=== PATIENT | male | born 1945 | race Caucasian/White ===

== ENCOUNTER 2017-04-10 06:10 | Day surgery (SDC) | payer MEDICARE, OTHER ==
[~2017-04-10 06:10] MED LIST: ACETAMINOPHEN 1,000 MG/100 ML BTL IV ONE
--- NOTE | 2017-04-10 13:10 | Operative Note ---
DATE OF SURGERY: 04/10/2017 Surgeon: Akbar Domingo DO PREOPERATIVE DIAGNOSES: 1. Torn medial and lateral meniscus of the right knee. 2. Chondromalacia of the right knee. POSTOPERATIVE DIAGNOSES: 1. Torn medial and lateral meniscus, right knee. 2. Chondromalacia of the patella, medial femoral condyle, lateral femoral condyle, and trochlea right knee. 3. Synovitis 2 compartments, right knee. OPERATION: 1. Arthroscopic partial medial and lateral meniscectomy, right knee. 2. Arthroscopic partial synovectomy 2 compartments, right knee. 3. Arthroscopic chondroplasty of the lateral femoral condyle and trochlea, right knee. DESCRIPTION OF PROCEDURE: This 72-year-old male was taken to the operating room and placed in the supine position on the operating room table. A general anesthetic was administered and the right lower extremity was elevated. It was exsanguinated and the tourniquet inflated to 300 mmHg. Arthroscopic knee adamson applied. The right knee was prepped with Hibiclens and draped in the usual sterile fashion. An inferior lateral portal was established for the 4 mm arthroscope and initial evaluation of the joint demonstrated grade 3 chondromalacia of the patella but no unstable articular cartilage was present there. Some unstable fragments of articular cartilage were, however, present in the trochlea and chondroplasty was performed. There was also synovitis there as well as in the lateral compartment, and partial synovectomy was performed. The medial compartment was probed and a complex tear extending from the posterior attachment around to about the 3-o'clock position was present with the apex being at approximately the 1:30 to 2-o'clock position. Utilizing the basket forceps, we resected back to the apex of the tear which was within about 2 mm of the meniscal synovial junction and then tapered in each direction to restore stability to the remaining meniscus. There was an area of grade 2 chondromalacia on the lateral aspect of the medial femoral condyle but no instability of the articular cartilage was present and it was not further disturbed. The intracondylar notch was examined and found to be normal. The lateral compartment was entered and grade 2 chondromalacia of the lateral femoral condyle was also present. Chondroplasty was performed to remove loose fragments of articular cartilage. The patient demonstrated radial tears of the lateral meniscus as well, and these were resected with the basket forceps and rotating shaver and smoothed and contoured to a stable edge. The joint was then copiously irrigated and suctioned. The instruments were removed. The puncture sites infiltrated with 0.25% Marcaine with epinephrine. Sterile dressings applied. Tourniquet and knee adamson released, and the patient taken to the recovery room in satisfactory condition. GROSS PATHOLOGY: The patient demonstrated tears of both the medial and lateral meniscus as described above. Grade 2 chondromalacia noted on all compartments except the patella which was grade 3. In addition, synovitis present mostly in the infrapatellar area as well as the lateral compartment. MTDD
[2017-04-10] MEDS ORDERED: BUPIVACAINE 0.25% W/EPI MPF 30ML VIAL IVP ONE (13:35)
[2017-04-10] MEDS ORDERED: FAMOTIDINE 20MG TABLET PO ONE (13:40)
[2017-04-10] MEDS ORDERED: METOCLOPRAMIDE 10 MG TABLET PO ONE (13:40)
[2017-04-10] MEDS ORDERED: MECLIZINE 25 MG TABLET PO ONE (13:40)
[2017-04-10] MEDS ORDERED: LIDOCAINE 2% MDV (20MG/ML) 20ML VIAL IV ONE (15:32)
[2017-04-10] MEDS ORDERED: PROPOFOL 10 MG/ML VIAL IV ONE (15:32)
[2017-04-10] MEDS ORDERED: KETOROLAC 30 MG/ML VIAL IVP ONE (15:32)
[2017-04-10] MEDS ORDERED: HYDROMORPHONE HCL 2 MG/ML VIAL IV ONE (15:32)
[2017-04-10] MEDS ORDERED: SEVOFLURANE 250 ML INH ONE (15:32)
[2017-04-10] MEDS ORDERED: MIDAZOLAM HCL 2MG/2ML VIAL IV ONE (15:32)
[2017-04-10] MEDS ORDERED: ONDANSETRON HCL IV 4 MG/2 ML VIAL IVP ONE (15:32)
== END 2017-04-10 09:10 | disposition home or self-care (01) ==
LOC: SUR 06:10
PROVIDERS: ATTEND Orthopaedic Surgery
DX: S83.281A Other tear of lateral meniscus, current injury, right knee, initial encounter (principal); S83.241A Other tear of medial meniscus, current injury, right knee, initial encounter; I25.810 Atherosclerosis of coronary artery bypass graft(s) without angina pectoris; I48.2 Chronic atrial fibrillation; E11.9 Type 2 diabetes mellitus without complications; Z79.01 Long term (current) use of anticoagulants; E78.00 Pure hypercholesterolemia, unspecified
CPT/HCPCS: 36416; 82948; 29880; 29876; 01400; J1885; J2405; J1170

== ENCOUNTER 2017-04-22 22:03 | Emergency (ER) | payer MEDICARE, OTHER ==
--- NOTE | 2017-04-22 22:15 | Emergency Department Record ---
History of Present Illness - General Chief Complaint: Arrythmia/Palpitations Stated Complaint: BP HIGH,HEAVINESS ON THE CHEST,RAPID HEART RATE Time Seen by Provider: 04/22/17 22:10 Source: Patient Mode of Arrival: Ambulatory Limitations: No limitations - History of Present Illness Initial Comments: 72 yo male presents to ED for evaluation of chest "heaviness" and intermittent "fluttering" in the chest. Patient reports a history of atrial fibrillation, but has not had an occurrence since 2009. Patient denies fevers, chills, cough , or recent illness. Patient reports history of CAD s/p CABG with stents x 5 as well. MD Complaint: Irregular heart beat Onset/Timin -: Days(s) Context: Occurred during rest Associated Symptoms: Chest pain - Related Data Home Medications Medication Instructions Recorded Confirmed Last Taken Atorvastatin Calcium 80 mg PO QHS 04/22/17 04/22/17 Unknown Carvedilol [Carvedilol] 6.25 mg PO DAILY 04/22/17 04/22/17 Unknown Clopidogrel Bisulfate [Clopidogrel] 75 mg PO DAILY 04/22/17 04/22/17 Unknown Ferrous Sulfate [Iron] 325 mg PO DAILY 04/22/17 04/22/17 Unknown Fish Oil/Dha/Epa [Fish Oil 1,200 1 each PO DAILY 04/22/17 04/22/17 Unknown mg Fish Oil] Insulin Aspart [Novolog Flexpen] 10 unit SQ TID 04/22/17 04/22/17 Unknown Insulin Glargine,Hum.rec.anlog 16 unit SQ DAILY 04/22/17 04/22/17 Unknown [Lantus Solostar] Lisinopril [Lisinopril] 10 mg PO DAILY 04/22/17 04/22/17 Unknown Metformin HCl [Metformin HCl] 1,000 mg PO BID 04/22/17 04/22/17 Unknown Multivitamin [Multi-Vitamin Daily] 1 each PO DAILY 04/22/17 04/22/17 Unknown Nitroglycerin [Nitrostat] 0.4 mg SL Q5MIN PRN 04/22/17 04/22/17 Unknown Ranitidine HCl [Zantac] 150 mg PO BID 04/22/17 04/22/17 Unknown Allergies Allergy/AdvReac Type Severity Reaction Status Date / Time dabigatran etexilate AdvReac internal Verified 04/22/17 22:07 [From [facility]] bleeding Review of Systems Constitutional: Denies: Chills, Fever, Malaise, Night sweats Eyes: Denies: Eye discharge, Eye pain ENT: Denies: Congestion, Ear pain, Epistaxis Respiratory: Denies: Cough, Dyspnea Cardiovascular: Reports: Chest pain, Palpitations. Denies: Dyspnea on exertion Endocrine: Denies: Fatigue, Heat or cold intolerance Gastrointestinal: Denies: Abdominal pain, Nausea, Vomiting Musculoskeletal: Denies: Arthralgia, Back pain Skin: Denies: Bruising, Change in color Neurological: Denies: Abnormal gait, Confusion, Headache, Seizure Psychiatric: Denies: Anxiety Hematological/Lymphatic: Denies: Anemia, Blood Clots Past Medical History - SOCIAL HISTORY Smoking Status: Former smoker Alcohol Use Comment: 1 drink every few days - RESPIRATORY Hx Respiratory Disorders: No - CARDIOVASCULAR Hx Cardio Disorders: Yes Hx Cardiac Cath: Yes Hx Chest Pain: Yes (>1 year) Hx Heart Attack: Yes (2003) Hx Hypertension: Yes Hx Irregular Heartbeat: Yes (A-fib r/t prodaxa) Hx Coronary Artery Bypass Graft: Yes (QUAD BYPASS) Hx Coronary Stent: Yes (5 stents total- last in 09/2011) Comment:: high cholesterol - NEURO Hx Neuro Disorders: No - GI Hx GI Disorders: Yes Hx Reflux: Yes Hx Wt Loss/Wt Gain: Yes (LOST A FEW POUNDS) - Hx Genitourinary Disorders: No - ENDOCRINE Hx Endocrine Disorders: Yes Hx Diabetes: Yes Comment:: CHECKS 4-5X/DAY HGB A1C 7.4 - MUSCULOSKELETAL Hx Musculoskeletal Disorders: Yes Hx Arthritis: Yes (KNEES) - PSYCH Hx Psych Problems: No - HEMATOLOGY/ONCOLOGY Hx Hematology/Oncology Disorders: Yes Hx Clotting Problems: Yes (TAKES PLAVIX) Hx Blood Transfusions: Yes (r/t prodaxa 2010) Physical Exam - General General Appearance: Alert, Oriented x3, Cooperative, Mild distress Limitations: No limitations - Head Head exam: Atraumatic, Normocephalic, Normal inspection Head exam detail: negative: Abrasion, Contusion, Rai's sign, General tenderness, Hematoma, Laceration - Eye Eye exam: Normal appearance. negative: Conjunctival injection, Periorbital swelling, Periorbital tenderness, Scleral icterus - ENT Ear exam: negative: Auricular hematoma, Auricular trauma Nasal Exam: negative: Active bleeding, Discharge, Dried blood, Foreign body Mouth exam: negative: Drooling, Laceration, Muffled voice, Tongue elevation - Neck Neck exam: Normal inspection. negative: Meningismus, Tenderness - Respiratory Respiratory exam: Normal lung sounds bilaterally. negative: Rales, Respiratory distress, Rhonchi, Stridor - Cardiovascular Cardiovascular Exam: Regular rate, Normal rhythm, Normal heart sounds - GI/Abdominal GI/Abdominal exam: Soft. negative: Rebound, Rigid, Tenderness - Rectal Rectal exam: Deferred - exam: Deferred - Extremities Extremities exam: Normal inspection. negative: Calf tenderness, Pedal edema, Tenderness - Back Back exam: Denies: CVA tenderness (R), CVA tenderness (L) - Neurological Neurological exam: Alert, Normal gait, Oriented X3 - Psychiatric Psychiatric exam: Normal affect, Normal mood - Skin Skin exam: Normal color. negative: Abrasion Type of lesion: negative: abrasion Course - Reevaluation(s) Reevaluation #1: 04/22/17 22:16 EKG: NSR 68 with PAC LAD, IVCD No acute ST-T wave changes are present. Reevaluation #2: 04/22/17 22:46 Labs reviewed and are grossly unremarkable for an acute process. CXR: No acute process. Reevaluation #3: 04/22/17 22:56 Patient is back from radiology, update don all results. Patient reports that he is resting comfortably at this time. Will discuss transfer to [facility] per patient choice for further cardiac etiology. Heart Score calculated: 6 Reevaluation #4: 04/22/17 23:02 Case was discussed with Dr. Tenorio, will accept transfer to [facility] for further cardiac evaluation. Medical Decision Making - Lab Data Result diagrams: 04/22/17 22:10 04/22/17 22:10 Disposition Disposition: Transfer Clinical Impression: Palpitations Chest pain Qualifiers: Chest pain type: unspecified Qualified Code(s): R07.9 - Chest pain, unspecified Disposition: Acute Care Hospital Transfer Transfer To: [facility] Reason For Transfer: Cardiology evaluation Accepting Physician: Jona Time Discussed w/Accepting Physician: 22:59 Condition: (2) Stable Forms: Patient Portal Access Time of Disposition: 22:59 Quality - Quality Measures Quality Measures: N/A - Blood Pressure Screening Does Patient Have Any of the Following: No Blood Pressure Classification: Pre-Hypertensive BP Reading Systolic Measurement: 129 Diastolic Measurement: 82 Screening for High Blood Pressure: < Pre-Hypertensive BP, F/U Documented > [ G8950] Pre-Hypertensive Follow-up Interventions: Referral to alternative/primary care provider.
[2017-04-22 22:19] LABS: HEMATOCRIT 43.7 % (42.0-52.0); HEMOGLOBIN 14.4 gm/dl (14.0-18.0); MEAN CELL VOLUME 92.8 fl (81-97); MEAN CORPUSCULAR HEMOGLOBIN 30.6 pg (27-33); MEAN PLATELET VOLUME 10.4 fl (7.4-10.4); PLATELET COUNT 211 K/uL (130-400); RED BLOOD COUNT 4.71 M/uL (4.40-5.70); RED CELL DISTRIBUTION WIDTH 13.6 % (11.5-14.5); WHITE BLOOD COUNT W/O DIFF 6.1 K/uL (4.2-12.2)
[2017-04-22] MEDS: ASPIRIN 81 MG CHEWABLE TABLET PO ONE (22:19)
[2017-04-22 22:38] LABS: ALBUMIN 4.3 g/dL (4.0-5.0); ALKALINE PHOSPHATASE 82 U/L (40-129); ALT/SGPT 14 U/L (<41); AST/SGOT 16 U/L (10.0-50.0); BLOOD UREA NITROGEN 20 mg/dL (8-23); CREATINE PHOSPHOKINASE 63 U/L (39-308); CREATININE 0.8 mg/dL (0.7-1.2); EST GLOMERULAR FILTRATION RATE > 60 mL/min; GLUCOSE,RANDOM 236 mg/dL (74-109); TOTAL PROTEIN 6.5 g/dL (6.6-8.7)
[2017-04-22 22:40] LABS: CKMB 2.8 ng/mL (<6.73)
[2017-04-22 22:41] LABS: TROPONIN I < 0.30 ng/mL (0.00-0.300)
== END 2017-04-23 | disposition short-term general hospital (02) ==
LOC: ER 22:03
DX: R00.2 Palpitations (principal); I49.1 Atrial premature depolarization; I44.7 Left bundle-branch block, unspecified; I48.91 Unspecified atrial fibrillation; I10 Essential (primary) hypertension; I25.2 Old myocardial infarction; E11.9 Type 2 diabetes mellitus without complications; Z79.4 Long term (current) use of insulin; Z79.01 Long term (current) use of anticoagulants; Z87.891 Personal history of nicotine dependence; Z95.1 Presence of aortocoronary bypass graft
CPT/HCPCS: 71020; 80053; 82550; 82553; 84484; 85027; 93005; 93010; 99285

== ENCOUNTER 2017-05-19 21:34 | Emergency (ER) | payer MEDICARE, OTHER ==
[2017-05-19] MEDS ORDERED: SODIUM CHLORIDE 0.9% 500 ML IV ONE (21:50)
[2017-05-19] MEDS ORDERED: ONDANSETRON HCL IV 4 MG/2 ML VIAL IV ONE (21:50)
[2017-05-19] MEDS ORDERED: MORPHINE SULFATE 5 MG/ML PFS IVP ONE ×2 (21:51→22:28)
--- NOTE | 2017-05-19 21:54 | Emergency Department Record ---
History of Present Illness - General Chief Complaint: Abdominal Pain Stated Complaint: LRQ ABDOMINAL PAIN/BOOD IN URINE Time Seen by Provider: 05/19/17 21:44 Source: Patient Mode of Arrival: Ambulatory Limitations: No limitations - History of Present Illness Initial Comments: The patient is here due to a 7 hour hx of RLQ AP. The pain is a dull aching constant pain and he does believe he may be urinating blood. He denies any L sided AP, back pain, fever, chills, dysuria, or vomiting. The patient has no hx of similar issues and no hx of any kidney stones. He also denies any abdominal surgeries. MD Complaint: Abdominal pain Onset/Timin -: Hour(s) Location: RLQ Radiation: R flank Quality: Dull Consistency: Constant Improves With: Nothing Worsens With: Nothing Associated Symptoms: Nausea - Related Data Home Medications Medication Instructions Recorded Confirmed Last Taken Rosuvastatin Calcium [Rosuvastatin 40 mg PO QHS 05/19/17 05/19/17 Unknown Calcium] Previous Rx's Medication Instructions Recorded Acetaminop W/ Codeine 300/30Mg 1 tab PO Q4H #20 tab 05/19/17 [Tylenol #3] Ondansetron [Zofran Odt] 4 mg SL .Q4-6H PRN #12 tab.rapdis 05/19/17 Tamsulosin HCl [Flomax] 0.4 mg PO DAILY #7 cap.er.24h 05/19/17 Allergies Allergy/AdvReac Type Severity Reaction Status Date / Time dabigatran etexilate AdvReac internal Verified 04/22/17 22:07 [From Pradaxa] bleeding Travel Screening - Travel/Exposure Within Last 30 Days Have you traveled within the last 30 days?: No - Travel Symptoms Symptom Screening: None Review of Systems Constitutional: Denies: Chills, Fever Eyes: Denies: Eye discharge ENT: Denies: Congestion Respiratory: Denies: Cough, Dyspnea Past Medical History - SOCIAL HISTORY Smoking Status: Former smoker - RESPIRATORY Hx Respiratory Disorders: No - CARDIOVASCULAR Hx Cardio Disorders: Yes Hx Cardiac Cath: Yes Hx Chest Pain: Yes (>1 year) Hx Heart Attack: Yes (2003) Hx Hypertension: Yes Hx Irregular Heartbeat: Yes (A-fib r/t prodaxa) Hx Coronary Artery Bypass Graft: Yes (QUAD BYPASS) Hx Coronary Stent: Yes (5 stents total- last in 09/2011) Comment:: high cholesterol - NEURO Hx Neuro Disorders: No - GI Hx GI Disorders: Yes Hx Reflux: Yes Hx Wt Loss/Wt Gain: Yes (LOST A FEW POUNDS) - Hx Genitourinary Disorders: No - ENDOCRINE Hx Endocrine Disorders: Yes Hx Diabetes: Yes Comment:: CHECKS 4-5X/DAY HGB A1C 7.4 - MUSCULOSKELETAL Hx Musculoskeletal Disorders: Yes Hx Arthritis: Yes (KNEES) - PSYCH Hx Psych Problems: No - HEMATOLOGY/ONCOLOGY Hx Hematology/Oncology Disorders: Yes Hx Clotting Problems: Yes (TAKES PLAVIX) Hx Blood Transfusions: Yes (r/t prodaxa 2010) Family Medical History Any Significant Family History?: No Family Hx Comment (NOT TO BE USED IN PLACE OF ITEMS BELOW): denies Physical Exam - General General Appearance: Alert, Oriented x3, Cooperative, No acute distress - Head Head exam: Atraumatic, Normocephalic, Normal inspection - Eye Eye exam: Normal appearance, PERRL - Neck Neck exam: Normal inspection, Full ROM. negative: Tenderness - Respiratory Respiratory exam: Normal lung sounds bilaterally. negative: Respiratory distress - Cardiovascular Cardiovascular Exam: Regular rate, Normal rhythm, Systolic murmur (2/6 (chronic) ) - GI/Abdominal GI/Abdominal exam: Soft, Normal bowel sounds, Tenderness (mild RLQ tenderness to palpation.), Other (The abdomen is very soft.). negative: Distended, Rebound , Rigid - Extremities Extremities exam: Normal inspection, Full ROM, Normal capillary refill. negative: Tenderness Course Vital Signs 05/19/17 21:43 Temperature 98.1 F Pulse Rate [ 78 Pulse Ox Probe] Respiratory 18 Rate Blood Pressure 149/86 [Left Arm] Pulse Ox 97 - Reevaluation(s) Reevaluation #1: The patient is doing better but is still having pain. He is resting comfortably. I did discuss the CT findings and the 3.85 mm stone in the mid ureter. 05/19/17 22:33 Reevaluation #2: The patient is doing much better. He has no nausea, vomiting, or pain at this time. I did discuss his urine results and the lack of any infection. He also states he is on a ketogenic diet for his DMII so that is the most likely cause of the ketones in his urine. He will be referred to Dr. Singh and will need to return for any increased pain, fever, or vomiting. 05/19/17 23:17 Medical Decision Making - Data Complexity MDM Data: Labs Ordered and/or Reviewed, X-Ray Ordered and/or Reviewed - Lab Data Result diagrams: 05/19/17 21:45 05/19/17 21:45 - Radiology Data Radiology results: Report reviewed (CT: 4 mm mid R ureter calculus with mod to severe hydroureter.) Disposition Disposition: Discharge Clinical Impression: Ureteral calculus Disposition: Home, Self-Care Condition: (2) Stable Instructions: Ureteral Stones (ED) Additional Instructions: Please drink plenty of fluids. Please use the Tylenol # 3 if needed for pain and the Zofran for nausea. Please see Dr. Singh later this week. Return to the ER for any increased pain, fever, or vomiting. Prescriptions: Acetaminop W/ Codeine 300/30Mg [Tylenol #3] 1 tab PO Q4H #20 tab Ondansetron [Zofran Odt] 4 mg SL .Q4-6H PRN #12 tab.rapdis PRN Reason: Nausea Tamsulosin HCl [Flomax] 0.4 mg PO DAILY #7 cap.er.24h Referrals: [facility] [Provider Group] BORIS SINGH M.D. [MEDICAL DOCTOR] - Forms: Patient Portal Access Time of Disposition: 23:22 Quality - Quality Measures Quality Measures: N/A - Blood Pressure Screening View Details: Yes Does Patient Have Any of the Following: No Blood Pressure Classification: Pre-Hypertensive BP Reading Systolic Measurement: 131 Diastolic Measurement: 74 Screening for High Blood Pressure: < Pre-Hypertensive BP, F/U Documented > [ G8950] Pre-Hypertensive Follow-up Interventions: Referral to alternative/primary care provider.
[2017-05-19 22:07] LABS: BASO % 0.3 % (0-6); EOS % 2.5 % (0-6); GRAN % 67.2 % (47-80); HEMATOCRIT 44.9 % (42.0-52.0); HEMOGLOBIN 14.8 gm/dl (14.0-18.0); LYMPH % 19.8 % (16-45); MEAN CELL VOLUME 93.2 fl (81-97); MEAN CORPUSCULAR HEMOGLOBIN 30.7 pg (27-33); MEAN PLATELET VOLUME 10.5 fl (7.4-10.4); MONO % 10.2 % (0-9); PLATELET COUNT 218 K/uL (130-400); RED BLOOD COUNT 4.82 M/uL (4.40-5.70); RED CELL DISTRIBUTION WIDTH 13.9 % (11.5-14.5); WHITE BLOOD COUNT W/O DIFF 7.2 K/uL (4.2-12.2)
[2017-05-19 22:24] LABS: BLOOD UREA NITROGEN 24 mg/dL (8-23); CREATININE 0.8 mg/dL (0.7-1.2); EST GLOMERULAR FILTRATION RATE > 60 mL/min; GLUCOSE,RANDOM 266 mg/dL (74-109); TOTAL PROTEIN 6.7 g/dL (6.6-8.7)
[2017-05-19 22:25] LABS: ALBUMIN 4.5 g/dL (4.0-5.0); ALKALINE PHOSPHATASE 89 U/L (40-129); ALT/SGPT 20 U/L (<41); AST/SGOT 20 U/L (10.0-50.0)
[2017-05-19 22:27] LABS: BILIRUBIN,DIRECT < 0.2 mg/dL (0-0.3)
[2017-05-19 22:53] LABS: URINE APPEARANCE SL CLOUDY; URINE BILIRUBIN SMALL (NEGATIVE); URINE BLOOD LARGE (NEGATIVE); URINE COLOR BROWN; URINE GLUCOSE (UA) NEGATIVE (NEGATIVE); URINE LEUKOCYTE ESTERASE NEGATIVE (NEGATIVE); URINE NITRITE NEGATIVE (NEGATIVE); URINE UROBILINOGEN 0.2 E.U./dL (0.20 - 1.00)
[2017-05-19 22:54] LABS: URINE KETONE 80 mg/dL (NEGATIVE)
[2017-05-19] MEDS ORDERED: 0.9 % SODIUM CHLORIDE 1,000 ML BAG IV ONE (22:57)
[2017-05-19 22:58] LABS: URINE BACTERIA NONE SEEN; URINE EPITHELIAL CELLS 0 - 2 (FEW); URINE RBC >50 (NONE SEEN); URINE WBC 0 - 2 (0-2/hpf)
--- NOTE | 2017-05-20 12:21 | CT SCAN REPORT ---
EXAM: CT OF THE ABDOMEN AND PELVIS HISTORY: RIGHT SIDED PAIN. TECHNIQUE: CT of the abdomen and pelvis was performed without oral or IV contrast. This limits evaluation of bowel and solid visceral organs. Comparison: None. FINDINGS: Elevation of the left hemidiaphragm. Limited evaluation of the lung bases is otherwise unremarkable. The osseous structures are grossly intact. Limited evaluation of the liver, spleen, adrenal glands, pancreas, and left kidney is unremarkable. Cholelithiasis. There is moderate to severe right sided hydronephrosis and hydroureter, secondary to an approximately 3.8 mm calculus in the mid right ureter. Calcifications of the prostate. Correlate with PSA levels. The urinary bladder is incompletely distended, limiting its evaluation. Moderate atheromatous change. No free air or free fluid. Sigmoid diverticulosis without CT evidence for diverticulitis. IMPRESSION: 1. MODERATE TO SEVERE RIGHT SIDED HYDRONEPHROSIS AND HYDROURETER SECONDARY TO A 3.8 MM MID RIGHT URETERAL CALCULUS. 2. SIGMOID DIVERTICULOSIS. NO CT EVIDENCE FOR DIVERTICULITIS. 3. CHOLELITHIASIS. JOB NUMBER: [id number] [facility]
== END 2017-05-19 23:32 | disposition home or self-care (01) ==
LOC: ER 21:34
DX: N13.2 Hydronephrosis with renal and ureteral calculous obstruction (principal); R11.0 Nausea
CPT/HCPCS: 99284 ×2; 96374; 96375; 85025; 80076; 80048; 81001; 74176; J2405; J2270; J7030

== ENCOUNTER 2017-07-06 20:41 | Emergency (ER) | payer MEDICARE, OTHER ==
[2017-07-06] MEDS ORDERED: MORPHINE SULFATE 5 MG/ML PFS IM ONE (20:51)
[2017-07-06] MEDS ORDERED: ONDANSETRON 4 MG ODT TABLET SL ONE (20:52)
[2017-07-06] MEDS ORDERED: HYDROCODONE/APAP 5/325MG TABLET PO ONE (20:55)
--- NOTE | 2017-07-06 20:57 | Emergency Department Record ---
History of Present Illness - General Chief complaint: Pain Stated complaint: R KNEE SWOLLEN Time Seen by Provider: 07/06/17 20:43 Source: Patient, Family Mode of Arrival: Ambulatory Limitations: No limitations - History of Present Illness Initial comments: 72 yo male presents worried about a blood clot with knee pain and calf swelling. He had a scope by Dr Domingo in March He has had some difficulties with knee swelling since surgery. He was given a Medrol Dose pack last week with initial improvement. Since completion of the medrol his knee swelling and pain have returned. He is also now having calf pain, swelling and tenderness. No cough, chest pain or shortness of breath. No history of DVT or PE. MD Complaint: Extremity pain, Extremity swelling (calf) -: Days(s) Location: Lower Leg -: Yes Arthralgia, Yes Myalgia Radiation: Distal Quality: Aching Consistency: Constant Improves with: Elevation, Immobilization Worsens with: Walking, Weight bearing Associated Symptoms: Denies other symptoms - Related Data Previous Rx's Medication Instructions Recorded Hydrocodone/Acetaminophen [Popejoy 1 each PO TID #15 tablet 07/06/17 5-325 Tablet] Allergies Allergy/AdvReac Type Severity Reaction Status Date / Time dabigatran etexilate AdvReac internal Verified 04/22/17 22:07 [From Pradaxa] bleeding Review of Systems Constitutional: Denies: Chills, Fever, Malaise Eyes: Denies: Eye discharge ENT: Denies: Congestion, Throat pain Respiratory: Denies: Cough Cardiovascular: Denies: Chest pain, Palpitations, Syncope Endocrine: Denies: Fatigue Gastrointestinal: Denies: Abdominal pain, Diarrhea, Nausea, Vomiting Genitourinary: Denies: Dysuria, Frequency, Hematuria Musculoskeletal: Reports: Arthralgia, Joint swelling, Myalgia Skin: Denies: Bruising, Change in color, Rash Neurological: Denies: Confusion, Headache, Numbness, Vertigo, Weakness Psychiatric: Denies: Anxiety Hematological/Lymphatic: Denies: Blood Clots, Easy bleeding, Easy bruising, Swollen glands Past Medical History - SOCIAL HISTORY Smoking Status: Former smoker - RESPIRATORY Hx Respiratory Disorders: No - CARDIOVASCULAR Hx Cardio Disorders: Yes Hx Cardiac Cath: Yes Hx Chest Pain: Yes (>1 year) Hx Heart Attack: Yes (2003) Hx Hypertension: Yes Hx Irregular Heartbeat: Yes (A-fib r/t prodaxa) Hx Coronary Artery Bypass Graft: Yes (QUAD BYPASS) Hx Coronary Stent: Yes (5 stents total- last in 09/2011) Comment:: high cholesterol - NEURO Hx Neuro Disorders: No - GI Hx GI Disorders: Yes Hx Reflux: Yes Hx Wt Loss/Wt Gain: Yes (LOST A FEW POUNDS) - Hx Genitourinary Disorders: No - ENDOCRINE Hx Endocrine Disorders: Yes Hx Diabetes: Yes Comment:: CHECKS 4-5X/DAY HGB A1C 7.4 - MUSCULOSKELETAL Hx Musculoskeletal Disorders: Yes Hx Arthritis: Yes (KNEES) - PSYCH Hx Psych Problems: No - HEMATOLOGY/ONCOLOGY Hx Hematology/Oncology Disorders: Yes Hx Clotting Problems: Yes (TAKES PLAVIX) Hx Blood Transfusions: Yes (r/t prodaxa 2010) Family Medical History Family Hx Comment (NOT TO BE USED IN PLACE OF ITEMS BELOW): denies Physical Exam - General General Appearance: Alert, Oriented x3, Cooperative, No acute distress Limitations: No limitations - Head Head exam: Normal inspection - Eye Eye exam: Normal appearance - ENT ENT exam: Normal exam Ear exam: Normal external inspection Nasal Exam: Normal inspection - Neck Neck exam: Normal inspection - Respiratory Respiratory exam: Normal lung sounds bilaterally. negative: Respiratory distress - Cardiovascular Cardiovascular Exam: Regular rate, Normal rhythm, Normal heart sounds - Rectal Rectal exam: Deferred - exam: Deferred - Extremities Extremities exam: Full ROM, Joint swelling, Normal capillary refill, Pedal edema , Tenderness. negative: Normal inspection Image of Full Body: 1 - mild knee swelling, no erythema or warmth, near full ROM, Calf with tenderness posteriorly, varicose veins, mild swelling compared to the left, no thigh swelling or tenderness. - Back Back exam: Reports: Full ROM - Neurological Neurological exam: Alert, Oriented X3 - Psychiatric Psychiatric exam: negative: Agitated, Anxious - Skin Skin exam: Intact, Normal color. negative: Abrasion, Cyanosis, Erythema, Mottled Course - Reevaluation(s) Reevaluation #1: 07/06/17 20:57 The patient has new calf pain. I recommend a doppler to R/O DVT. I explained [facility] does not have US available at this time. I recommend transfer to a hospital with US available. He will call Dr Dmoingo tomorrow for another office follow up regarding the persistent joint swelling. It does not appear to have any signs of infection. 07/06/17 21:11 I Spoke with the emergency attending at [facility]. US is available. Dr Mcnally accepts the patient for transfer. He will follow up the actual ongoing knee issue with Dr Domingo MICHELET 07/06/17 21:13 07/06/17 21:15 He is stable for transfer by private care at this time Disposition Disposition: Discharge Clinical Impression: Knee effusion, right, Pain of right calf Disposition: Acute Care Hospital Transfer Transfer To: [facility] Reason For Transfer: Venous Doppler for calf swellling Accepting Physician: Dali Time Discussed w/Accepting Physician: 21:07 Condition: (1) Good Instructions: Leg Edema (ED) Additional Instructions: Go directly to [facility] ED to be seen for an US of the leg to rule out a blood clot. Prescriptions: Hydrocodone/Acetaminophen [Popejoy 5-325 Tablet] 1 each PO TID #15 tablet Forms: Patient Portal Access Time of Disposition: 21:00 Quality - Quality Measures Quality Measures: N/A - Blood Pressure Screening Does Patient Have Any of the Following: No Blood Pressure Classification: Normal BP Reading Systolic Measurement: 112 Diastolic Measurement: 73 Screening for High Blood Pressure: < Normal BP, F/U Not Required > [G8783]
== END 2017-07-06 21:28 | disposition short-term general hospital (02) ==
LOC: ER 20:41
DX: M25.461 Effusion, right knee (principal); M25.561 Pain in right knee; I10 Essential (primary) hypertension; I25.2 Old myocardial infarction; E11.9 Type 2 diabetes mellitus without complications; I48.91 Unspecified atrial fibrillation; Z79.4 Long term (current) use of insulin
CPT/HCPCS: 96372; 99284

== ENCOUNTER 2017-07-16 11:28 | Observation (INO) | payer MEDICARE, OTHER ==
[2017-07-16] MEDS ORDERED: SEVOFLURANE 250 ML INH ONE (11:29)
[2017-07-16] MEDS ORDERED: LIDOCAINE 2% MDV (20MG/ML) 20ML VIAL IV ONE (11:29)
[2017-07-16] MEDS ORDERED: FENTANYL PF 100MCG/2ML VIAL IV ONE (11:29)
[2017-07-16] MEDS ORDERED: BUPIVACAINE 0.75% W/EPI MPF 30ML VIAL IVP ONE (11:29)
[2017-07-16] MEDS ORDERED: PROPOFOL 10 MG/ML VIAL IV ONE (11:29)
[2017-07-16] MEDS ORDERED: LABETALOL HCL 5MG/ML, 20ML VIAL IVPB ONE (11:29)
[2017-07-16] MEDS ORDERED: VANCOMYCIN HCL 1,000 MG in DEXTROSE 5 % IN WATER 250 ML IV ONE ×2 (14:00)
[2017-07-16] MEDS ORDERED: HYDROCODONE/APAP 7.5/325MG TABLET PO PRN (14:07)
--- NOTE | 2017-07-16 14:30 | Operative Note ---
DATE OF SURGERY: 07/16/2017 SURGEON: Akbar Domingo DO REFERRING PHYSICIAN: Sathya Butler DO PREOPERATIVE DIAGNOSIS: Septic arthritis of the right knee. POSTOPERATIVE DIAGNOSES: 1. Torn lateral meniscus, right knee. 2. Synovitis, right knee. 3. Possible septic arthritis, right knee. OPERATIVE PROCEDURES: 1. Arthroscopic partial lateral meniscectomy, right knee. 2. Arthroscopic partial synovectomy, right knee. DESCRIPTION: This 72-year-old male was taken to the operating room and placed in the supine position on the operating room table. General anesthesia was induced, and the right lower extremity was elevated, it was exsanguinated, and the tourniquet inflated to 300 mmHg. Arthroscopic knee adamson applied. Right knee prepped with Hibiclens and draped in the usual sterile fashion. An inferolateral portal was established for the 4 mm arthroscope and the fluid was obtained from the cannula before introducing any fluid into the knee, and aerobic and anaerobic cultures were obtained. The fluid had a slightly cloudy appearance. The scope was then placed in the joint and relatively mild synovitis of the knee was present. Some fibrous tissue was noted throughout the knee, but it was not severe. The rotating shaver was placed in the joint and partial synovectomy was performed to obtain specimen to send to the laboratory. This knee did not appear to be grossly infected and much of the synovial tissue looked entirely normal. The patient's medial compartment was entered, and the knee was copiously irrigated with the rotating shaver and probing of the medial meniscus essentially demonstrated similar findings from before. Patient had previous partial medial meniscectomy and the medial meniscus remained stable. The intercondylar notch was examined and the patient looked like there had been some mild disruption at the base of the anterior cruciate ligament, but it was not further disturbed. However, there was clearly a tear of the anterior horn of the lateral meniscus. A horizontal cleavage tear was apparent, and this tear extended to approximately the 9 o'clock position from the anterior horn. There was also a small flap tear at the posterior attachment, but the root was not violated. This was resected with the rotating shaver, and the remainder of the lateral meniscus was probed until we got to about the 9 o'clock position, and then using the rotating shaver, we resected the internal portion of the lateral meniscus, which was clearly loose and flapping back and forth. Some scuffing as a result of that was noted in the medial femoral condyle and these little flaps were removed. 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 The remaining cartilage appeared healthy and did not appear to have been subjected to MRSA. The wound was copiously irrigated and suctioned and there was no pus in the knee, and we did not feel that draining the knee was necessary. The portals were infiltrated with 0.25% Marcaine with epinephrine, sterile dressings were applied, and the patient taken to the recovery room in satisfactory condition. GROSS PATHOLOGY: This patient demonstrated mild synovitis of the knee. There was also a complex tear of the anterior horn of the lateral meniscus with horizontal cleavage components being evident, and a small flap tear posteriorly. Evidence of previous medial meniscectomy. There was some synovitis in the suprapatellar pouch, but the medial and lateral gutters of the synovium appeared to be relatively normal. This knee certainly did not have the classic appearance of septic arthritis. The patient previously had an aspiration of his knee. That culture had a single colony of MRSA on an anaerobic plate. The specimen previously sent to [facility]. Prophylactically, the patient had been placed on Cleocin 300 mg q.i.d. The patient felt that his knee swelling was slightly better, but he still continued to have pain in his knee. CC: DO SHENG Mcmahon
[2017-07-16] MEDS: NOVOLOG FLEXPEN (INSULIN ASPART) 100 UNITS/ML SQ SCH (17:36)
[2017-07-16] MEDS: ATORVASTATIN 20 MG TABLET PO SCH (17:39)
[2017-07-16] MEDS: CARVEDILOL 3.125 MG TABLET PO SCH (17:39)
[2017-07-16] MEDS ORDERED: ONDANSETRON 4 MG ODT TABLET SL PRN (17:45)
[2017-07-16] MEDS: LEVEMIR FLEXTOUCH 100 UNIT/ML INSULIN PEN SQ SCH (20:10)
[2017-07-16] MEDS: HYDROCODONE/APAP 7.5/325MG TABLET PO PRN (20:34)
[2017-07-16] MEDS: VANCOMYCIN HCL 1,000 MG in DEXTROSE 5 % IN WATER 250 ML IVPB SCH ×2 (22:44)
[2017-07-16] MEDS: METFORMIN 500 MG TABLET PO SCH (22:45)
[2017-07-17] MEDS: HYDROCODONE/APAP 7.5/325MG TABLET PO PRN ×6 (00:08→22:19)
[2017-07-17] MEDS: LEVEMIR FLEXTOUCH 100 UNIT/ML INSULIN PEN SQ SCH ×2 (00:09→22:51)
[2017-07-17] MEDS: NOVOLOG FLEXPEN (INSULIN ASPART) 100 UNITS/ML SQ SCH ×3 (08:04→18:02)
[2017-07-17] MEDS: VANCOMYCIN HCL 1,000 MG in DEXTROSE 5 % IN WATER 250 ML IVPB SCH ×4 (08:56→20:19)
[2017-07-17] MEDS: ASPIRIN 81 MG TABEC PO SCH (09:57)
[2017-07-17] MEDS: FERROUS SULFATE 325 MG TAB PO SCH (09:58)
[2017-07-17] MEDS: LISINOPRIL 10 MG TABLET PO SCH (09:58)
[2017-07-17] MEDS: METFORMIN 500 MG TABLET PO SCH ×2 (09:58→22:20)
[2017-07-17] MEDS: CLOPIDOGREL 75MG TABLET PO SCH (09:58)
[2017-07-17] MEDS: ATORVASTATIN 20 MG TABLET PO SCH (18:02)
[2017-07-17] MEDS: CARVEDILOL 3.125 MG TABLET PO SCH (18:03)
[2017-07-17 19:52] LABS: CREATININE 0.9 mg/dL (0.7-1.2); EST GLOMERULAR FILTRATION RATE > 60 mL/min; VANCOMYCIN TROUGH 9.3 ug/mL (5.0-10.0)
[2017-07-17] MEDS ORDERED: NOVOLOG FLEXPEN (INSULIN ASPART) 100 UNITS/ML SQ ONE (22:30)
[2017-07-18] MEDS ORDERED: NOVOLOG FLEXPEN (INSULIN ASPART) 100 UNITS/ML SQ ONE (01:02)
[2017-07-18] MEDS: VANCOMYCIN HCL 1,000 MG in DEXTROSE 5 % IN WATER 250 ML IVPB SCH ×2 (06:15)
[2017-07-18] MEDS: NOVOLOG FLEXPEN (INSULIN ASPART) 100 UNITS/ML SQ SCH (08:42)
[2017-07-18] MEDS: HYDROCODONE/APAP 7.5/325MG TABLET PO PRN (08:46)
[2017-07-18] MEDS: ASPIRIN 81 MG TABEC PO SCH (09:57)
[2017-07-18] MEDS: METFORMIN 500 MG TABLET PO SCH (09:57)
[2017-07-18] MEDS: LISINOPRIL 10 MG TABLET PO SCH (09:58)
[2017-07-18] MEDS: FERROUS SULFATE 325 MG TAB PO SCH (09:58)
[2017-07-18] MEDS: CLOPIDOGREL 75MG TABLET PO SCH (09:58)
--- NOTE | 2017-07-20 12:50 | Discharge Summary ---
DATE OF ADMISSION: 07/16/2017 DATE OF DISCHARGE: 07/18/2017 SURGEON: Akbar Domingo DO ADMITTING DIAGNOSIS: Septic arthritis of the right knee. DISCHARGE DIAGNOSES: 1. Torn lateral meniscus right knee. 2. Doubt septic arthritis. HISTORY OF PRESENT ILLNESS: This 72-year-old male was admitted to the hospital after arthroscopic surgery demonstrated a tear in the lateral meniscus. The patient had no history of an injury, but did complain of pain in the anterior lateral aspect of his knee with radiation of the pain down his leg and swelling. An aspiration of his knee was obtained prior to the surgery, which showed a single anaerobic colony of MRSA, sensitive to vancomycin. The patient had previously been started prophylactically on Cleocin, which was subsequently discontinued. The patient was subsequently admitted to the hospital after the arthroscopic surgery for prophylactic treatment with the vancomycin for 48 hours. On 07/17/2017 the patient was doing extremely well and had not actually gotten up out of the hospital bed until approximately 5 o'clock in the afternoon. When he got up to walk around, he said that the pain down his leg was no longer present and he felt considerably better. The dressing was changed and there was no sign of any wound infection and the wound appeared to be healthy, no sign of DVT. The patient will be discharged on 07/18. He will not be discharged on antibiotics. He was given a prescription for Yale 7.5/325 #40, to take 1 every 6 hours as necessary for pain. He will follow up in my office in 1 week for reevaluation. Should he have any problems prior to being seen, he was instructed to call my office. SHENG
== END 2017-07-18 10:45 | disposition home or self-care (01) ==
LOC: SUR 11:28 → MEDSURG 14:00 → SUR 14:19 → MEDSURG 14:19 → SUR 07-18 10:45
PROVIDERS: ADMIT Orthopaedic Surgery; ATTEND Orthopaedic Surgery
DX: M00.061 Staphylococcal arthritis, right knee (principal); M23.241 Derangement of anterior horn of lateral meniscus due to old tear or injury, right knee; M65.9 Synovitis and tenosynovitis, unspecified; E11.65 Type 2 diabetes mellitus with hyperglycemia; Z79.4 Long term (current) use of insulin; Z79.84 Long term (current) use of oral hypoglycemic drugs; I48.2 Chronic atrial fibrillation; Z79.01 Long term (current) use of anticoagulants; I10 Essential (primary) hypertension; I25.810 Atherosclerosis of coronary artery bypass graft(s) without angina pectoris
CPT/HCPCS: 29881; 29875; 01400; 82565; 36416; 80202; 82948; G0378 ×3; J3490 ×5; J3370 ×3; J3010; J1815 ×2; J7060

== ENCOUNTER 2018-02-24 21:40 | Emergency (ER) | payer MEDICARE, OTHER ==
[2018-02-24] MEDS ORDERED: 0.9 % SODIUM CHLORIDE 1,000 ML BAG IV ONE ×3 (21:54→22:08)
--- NOTE | 2018-02-24 22:00 | Emergency Department Record ---
History of Present Illness - General Chief Complaint: Hypotension Stated Complaint: low blood pressure Time Seen by Provider: 02/24/18 21:51 Source: Patient, Family Mode of Arrival: Ambulatory - History of Present Illness Initial Comments: Patient and report that he has been having episodes of low blood pressure, the most recent being about 2 weeks ago. He was admitted to another facility, and since then has been increasing his water intake and keeping track of it. Today for example, he has drunk 100 cc of water throughout the day. His BP at 1600 was 99 systolic. At 2100 it was 70 systolic, so he came here. He has not passed out, not fallen, and has no complaints. He denies fevers, chills, sore throat, cough, chest pain, KIT, n,v,d, abdominal pain, or urinary symptoms. His reports abdulkadir had a history of MRSA in the past, but no current lesions or site of infection that he know of. Onset/Timin -: Days(s) Description: Lightheadedness - Javier Coma Scale Eye Response: (4) Open spontaneously Motor Response: (6) Obeys commands Verbal Response: (5) Oriented [place] Total: 15 - Related Data Home Medications Medication Instructions Recorded Confirmed Last Taken Omeprazole 40 mg PO DAILY 02/24/18 02/24/18 Unknown Trazodone HCl 150 mg PO QHS 02/24/18 02/24/18 Unknown Allergies Allergy/AdvReac Type Severity Reaction Status Date / Time dabigatran etexilate AdvReac internal Verified 04/22/17 22:07 [From Pradaxa] bleeding Travel Screening - Travel/Exposure Within Last 30 Days Have you traveled within the last 30 days?: No - Travel/Exposure Within Last Year Have you traveled outside the [place] in the last year?: No - Additonal Travel Details Have you been exposed to anyone with a communicable illness?: No - Travel Symptoms Symptom Screening: None Review of Systems Reviewed: No additional complaints except as noted below Constitutional: Reports: As per HPI. Denies: Chills, Fever, Malaise, Night sweats, Weakness, Weight change Eyes: Reports: As per HPI. Denies: Eye discharge, Eye pain, Photophobia, Vision change ENT: Reports: As per HPI. Denies: Congestion, Dental pain, Ear pain, Epistaxis , Hearing loss, Throat pain Respiratory: Reports: As per HPI. Denies: Cough, Dyspnea, Hemoptysis, Stridor, Wheezes Cardiovascular: Reports: As per HPI. Denies: Arrhythmia, Chest pain, Dyspnea on exertion, Edema, Murmurs, Orthopnea, Palpitations, Paroxysmal nocturnal dyspnea, Rheumatic Fever, Syncope Endocrine: Reports: As per HPI. Denies: Fatigue, Heat or cold intolerance, Polydipsia, Polyuria Gastrointestinal: Reports: As per HPI. Denies: Abdominal pain, Constipation, Diarrhea, Hematemesis, Hematochezia, Melena, Nausea, Vomiting Genitourinary: Reports: As per HPI. Denies: Dysuria, Frequency, Hematuria, Incontinence, Retention, Testicular pain, Testicular mass, Urgency Musculoskeletal: Reports: As per HPI. Denies: Arthralgia, Back pain, Gout, Joint swelling, Myalgia, Neck pain Skin: Reports: As per HPI. Denies: Bruising, Change in color, Change in hair/ nails, Lesions, Pruritus, Rash Neurological: Reports: As per HPI. Denies: Abnormal gait, Confusion, Headache, Numbness, Paresthesias, Seizure, Tingling, Tremors, Vertigo, Weakness Psychiatric: Reports: As per HPI. Denies: Anxiety, Auditory hallucinations, Depression, Homicidal thoughts, Suicidal thoughts, Visual hallucinations Hematological/Lymphatic: Reports: As per HPI. Denies: Anemia, Blood Clots, Easy bleeding, Easy bruising, Swollen glands Past Medical History - SOCIAL HISTORY Smoking Status: Former smoker Alcohol Use: None Drug Use: None - RESPIRATORY Hx Respiratory Disorders: Yes Hx COPD: Yes - CARDIOVASCULAR Hx Cardio Disorders: Yes Hx Cardiac Cath: Yes Hx Chest Pain: Yes (>1 year) Hx Heart Attack: Yes (2003) Hx Hypertension: Yes Hx Irregular Heartbeat: Yes (A-fib r/t prodaxa) Hx Coronary Artery Bypass Graft: Yes (QUAD BYPASS) Hx Coronary Stent: Yes (5 stents total- last in 09/2011) Comment:: high cholesterol - NEURO Hx Neuro Disorders: No - GI Hx GI Disorders: Yes Hx Reflux: Yes Hx Wt Loss/Wt Gain: Yes (LOST A FEW POUNDS) Comment:: PASSED GALLSTONE IN May, - Hx Genitourinary Disorders: No - ENDOCRINE Hx Endocrine Disorders: Yes Hx Diabetes: Yes Hx Thyroid Disease: No Comment:: CHECKS 4-5X/DAY HGB A1C 7.4 - MUSCULOSKELETAL Hx Musculoskeletal Disorders: Yes Hx Arthritis: Yes (KNEES) Comment:: SWELLING RIGHT KNEE-septic + MRSA - PSYCH Hx Psych Problems: No - HEMATOLOGY/ONCOLOGY Hx Hematology/Oncology Disorders: Yes Hx Clotting Problems: Yes (TAKES PLAVIX) Hx Blood Transfusions: Yes (r/t prodaxa 2010) Family Medical History Any Significant Family History?: Yes Family Hx Comment (NOT TO BE USED IN PLACE OF ITEMS BELOW): denies Physical Exam - General General Appearance: Alert, Oriented x3, Cooperative, No acute distress - Head Head exam: Normal inspection - Eye Eye exam: Normal appearance, PERRL Pupils: Normal accommodation - ENT ENT exam: Normal exam, Mucous membranes moist, Normal external ear exam, Normal orophraynx, TM's normal bilaterally Ear exam: Normal external inspection. negative: External canal tenderness Nasal Exam: Normal inspection. negative: Discharge, Sinus tenderness Mouth exam: Normal external inspection, Tongue normal Teeth exam: Normal inspection. negative: Dental caries Throat exam: Normal inspection. negative: Tonsillar erythema, Tonsillar exudate - Neck Neck exam: Normal inspection, Full ROM. negative: Lymphadenopathy, Meningismus , Tenderness - Respiratory Respiratory exam: Normal lung sounds bilaterally. negative: Respiratory distress - Cardiovascular Cardiovascular Exam: Regular rate, Normal rhythm, Normal heart sounds - GI/Abdominal GI/Abdominal exam: Soft, Normal bowel sounds. negative: Distended, Tenderness - Rectal Rectal exam: Deferred - exam: Deferred - Extremities Extremities exam: Normal inspection, Full ROM, Normal capillary refill. negative: Tenderness - Back Back exam: Reports: Normal inspection, Full ROM. Denies: CVA tenderness (R), CVA tenderness (L), Muscle spasm, Rash noted, Tenderness - Neurological Neurological exam: Alert, CN II-XII intact, Normal gait, Oriented X3, Reflexes normal. negative: Motor sensory deficit - Psychiatric Psychiatric exam: Normal affect, Normal mood - Skin Skin exam: Dry, Intact, Normal color, Warm. negative: Diaphoretic Course Vital Signs 02/24/18 21:46 Temperature 97.7 F Pulse Rate 75 Respiratory 20 Rate Blood Pressure 77/59 Pulse Ox 97 - Reevaluation(s) Reevaluation #1: Blood pressure is over 100 systolic after 1.5 liters NS. Patient is comfortable. 02/24/18 23:20 Reevaluation #2: Dr. Luke connellyd [id number] 02/24/18 23:50 Reevaluation #3: Discussed at length with Dr. Nichols manager utilization for Dr. Butler. His recent labs were reviewed and compared with the abnormal labs tonight. She is comfortable with a follow up recheck n the office tomorrow without fail. 02/25/18 00:10 Medical Decision Making - Management Options MDM Management: No Additional Work-up Planned - Data Complexity MDM Data: Labs Ordered and/or Reviewed - Lab Data Result diagrams: 02/24/18 21:50 02/24/18 21:50 Disposition Disposition: Discharge Clinical Impression: Hypotension due to medication Disposition: Home, Self-Care Condition: (1) Good Instructions: Hypotension (ED) Additional Instructions: Discontinue lisinopril. Follow up with Dr. Butler in the office tomorrow without fail. Increase fluid intake. Forms: Patient Portal Access Quality - Quality Measures Quality Measures: N/A - Blood Pressure Screening Does Patient Have Any of the Following: No Blood Pressure Classification: Normal BP Reading Systolic Measurement: 77 Diastolic Measurement: 59 Screening for High Blood Pressure: < Normal BP, F/U Not Required > [G8783]
[2018-02-24 22:16] LABS: BASO % 0.3 % (0-6); EOS % 2.4 % (0-6); GRAN % 60.9 % (47-80); HEMATOCRIT 34.3 % (42.0-52.0); HEMOGLOBIN 10.3 gm/dl (14.0-18.0); LYMPH % 26.1 % (16-45); MEAN PLATELET VOLUME 9.7 fl (7.4-10.4); MONO % 10.3 % (0-9); PLATELET COUNT 328 K/uL (130-400); RED BLOOD COUNT 4.29 M/uL (4.40-5.70); RED CELL DISTRIBUTION WIDTH 18.9 % (11.5-14.5); WHITE BLOOD COUNT W/O DIFF 5.9 K/uL (4.2-12.2)
[2018-02-24 22:26] LABS: PROTHROMBIN TIME (PATIENT) 11.1 SECONDS (9.5-12.1)
[2018-02-24 22:28] LABS: BLOOD UREA NITROGEN 24 mg/dL (8-23); CREATININE 1.4 mg/dL (0.7-1.2); EST GLOMERULAR FILTRATION RATE 53 mL/min
[2018-02-24 22:29] LABS: TOTAL PROTEIN 7.5 g/dL (6.6-8.7)
[2018-02-24 22:31] LABS: GLUCOSE,RANDOM 156 mg/dL (74-109)
[2018-02-24 22:34] LABS: ALB/GLOB RATIO 1.3 (1.1-1.8); ALBUMIN 4.2 g/dL (4.0-5.0); ALKALINE PHOSPHATASE 121 U/L (40-129); ALT/SGPT 20 U/L (<41); AST/SGOT 22 U/L (10.0-50.0)
[2018-02-24 23:31] LABS: URINE APPEARANCE CLEAR; URINE BILIRUBIN NEGATIVE (NEGATIVE); URINE BLOOD NEGATIVE (NEGATIVE); URINE COLOR YELLOW; URINE GLUCOSE (UA) NEGATIVE (NEGATIVE); URINE KETONE NEGATIVE (NEGATIVE); URINE LEUKOCYTE ESTERASE NEGATIVE (NEGATIVE); URINE NITRITE NEGATIVE (NEGATIVE); URINE PROTEIN NEGATIVE (NEGATIVE); URINE UROBILINOGEN 0.2 E.U./dL (0.20 - 1.00)
== END 2018-02-25 00:36 | disposition home or self-care (01) ==
LOC: ER 21:40
DX: I95.2 Hypotension due to drugs (principal); T46.4X5A Adverse effect of angiotensin-converting-enzyme inhibitors, initial encounter; R42 Dizziness and giddiness; E11.9 Type 2 diabetes mellitus without complications; I10 Essential (primary) hypertension; I25.2 Old myocardial infarction; Z79.84 Long term (current) use of oral hypoglycemic drugs; Z79.4 Long term (current) use of insulin; Z95.1 Presence of aortocoronary bypass graft
CPT/HCPCS: 80053; 81003; 83605; 84484; 85025; 85610; 93005; 93010; 96360; 96361; 99284; J7030

== ENCOUNTER 2018-06-07 11:53 | Emergency (ER) | payer MEDICARE, OTHER ==
--- NOTE | 2018-06-07 12:08 | Emergency Department Record ---
History of Present Illness - General Chief complaint: Extremity Problem Stated complaint: LEFT LEG SWOLLEN Time Seen by Provider: 06/07/18 11:58 Source: Patient, Family Mode of Arrival: Ambulatory Limitations: No limitations - History of Present Illness Initial comments: 73 yo male presents with left leg pain. He states he had swelling that started about 6 days ago. He denies and known injury. No fevers, chills, rashes, blisters, numbness, weakness, tingling. He was seen the [facility]. A venous doppler was performed. It was negative for DVT on the . He states the swelling is much better (nearly resolved) but he still has pain in the mid left lower leg. No knee pain or ankle pain. His biggest concern in the pain with weight bearing in the mid leg. No knee or ankle pain with weight bearing. No fevers. No rash. No redness. No numbness. No coolness. No tingling. No other joint pain. PCP is Dr Reveles. Complaint: Extremity swelling -: Days(s) (6) Location: Left History of Same: Yes -: Yes Arthralgia, Yes Myalgia Radiation: Proximal Quality: Aching Consistency: Constant Improves with: Elevation, Immobilization Worsens with: Palpation, Walking Associated Symptoms: Denies other symptoms - Related Data Home Medications Medication Instructions Recorded Confirmed Last Taken Clopidogrel Bisulfate [Clopidogrel] 75 mg PO DAILY 06/07/18 06/07/18 1 Day Ago ~06/06/18 Ranitidine HCl 150 mg PO BID 06/07/18 06/07/18 1 Day Ago ~06/06/18 Allergies Allergy/AdvReac Type Severity Reaction Status Date / Time celecoxib [From Celebrex] Allergy GI Bleeding Verified 06/07/18 12:08 dabigatran etexilate AdvReac internal Verified 06/07/18 12:00 [From Pradaxa] bleeding Review of Systems Constitutional: Denies: Chills, Fever, Malaise, Weakness Eyes: Denies: Eye discharge ENT: Denies: Congestion, Throat pain Respiratory: Denies: Cough, Dyspnea Cardiovascular: Denies: Chest pain, Palpitations, Syncope Endocrine: Denies: Fatigue Gastrointestinal: Denies: Abdominal pain, Diarrhea, Nausea, Vomiting Genitourinary: Denies: Dysuria, Frequency, Hematuria Musculoskeletal: Reports: As per HPI, Myalgia Skin: Denies: Bruising, Change in color, Rash Neurological: Denies: Confusion, Headache Psychiatric: Denies: Anxiety Hematological/Lymphatic: Denies: Easy bleeding, Easy bruising Past Medical History - SOCIAL HISTORY Smoking Status: Former smoker Drug Use: None - RESPIRATORY Hx Respiratory Disorders: Yes Hx COPD: Yes - CARDIOVASCULAR Hx Cardio Disorders: Yes Hx Cardiac Cath: Yes Hx Chest Pain: Yes (>1 year) Hx Heart Attack: Yes (2003) Hx Hypertension: Yes Hx Irregular Heartbeat: Yes (A-fib r/t prodaxa) Hx Coronary Artery Bypass Graft: Yes (QUAD BYPASS) Hx Coronary Stent: Yes (5 stents total- last in 09/2011) Comment:: high cholesterol - NEURO Hx Neuro Disorders: No - GI Hx GI Disorders: Yes Hx Reflux: Yes Hx Wt Loss/Wt Gain: Yes (LOST A FEW POUNDS) Comment:: PASSED GALLSTONE IN May, - Hx Genitourinary Disorders: No - ENDOCRINE Hx Endocrine Disorders: Yes Hx Diabetes: Yes Hx Thyroid Disease: No Comment:: CHECKS 4-5X/DAY HGB A1C 7.4 - MUSCULOSKELETAL Hx Musculoskeletal Disorders: Yes Hx Arthritis: Yes (KNEES) Comment:: SWELLING RIGHT KNEE-septic + MRSA - PSYCH Hx Psych Problems: No - HEMATOLOGY/ONCOLOGY Hx Hematology/Oncology Disorders: Yes Hx Clotting Problems: Yes (TAKES PLAVIX) Hx Blood Transfusions: Yes (r/t prodaxa 2010) Family Medical History Family Hx Comment (NOT TO BE USED IN PLACE OF ITEMS BELOW): denies Physical Exam - General General Appearance: Alert, Oriented x3, Cooperative, No acute distress Limitations: No limitations - Head Head exam: Atraumatic, Normal inspection - Eye Eye exam: Normal appearance. negative: Conjunctival injection, Periorbital swelling, Scleral icterus - ENT ENT exam: Normal exam, Mucous membranes moist Ear exam: Normal external inspection Nasal Exam: Normal inspection Mouth exam: Normal external inspection - Neck Neck exam: Normal inspection, Full ROM. negative: Tenderness - Respiratory Respiratory exam: Normal lung sounds bilaterally. negative: Respiratory distress - Cardiovascular Cardiovascular Exam: Regular rate, Normal rhythm, Normal heart sounds - Extremities Extremities exam: Calf tenderness, Full ROM, Pedal edema (trace edema of the left pretibilal area (greatly improved per the patient)), Tenderness Image of Full Body: 1 - tenderness to the calf and tibia. Normal skin on inspection, no abnormal warm, intact skin. Knee and ankle are non tender. No foot edema, no knee edema. The calf is soft. Nearly symmetric to the right calf. Warm foot with intact pulses. - Neurological Neurological exam: Alert, Oriented X3. negative: Motor sensory deficit - Psychiatric Psychiatric exam: Normal affect, Normal mood - Skin Skin exam: Dry, Intact, Normal color, Warm Course - Reevaluation(s) Reevaluation #1: The inspection of the left leg is nearly normal with near complete resolution of the swelling. No abnormal warmth or coolness, no abnormal coloration. No overt signs of infection after close to a week of pain. He is tender to palpation anterior reece around to medial calf. No lateral tenderness and posterior is unremarkable. EMR reviewed. Venous Doppler on 06/04 was negative Family Practice note reviewed. Edema was present on that exam. Today's nearly resolved. No signs of infection examination at that time. No abnormal warmth or coolness then as well. 06/07/18 12:23 The labs were reviewed No acute changes on the CBC. Improving chronic anemia. The BMP was reviewed. Na was 131. Glucose elevate at 371. CRP is 1.51. 06/07/18 12:45 The patient was undated. Pain is well controlled. Ambulating without limitation in the ED. 06/07/18 13:50 06/07/18 13:57 The XR was read as no acute osseous findings. 06/07/18 14:10 The arterial doppler was reviewed. Atherosclerotic disease noted without flow limitations. Incident note of a Hall's cyst on US. This does have some correspondence near the pain. The patient was informed of the results. He will be referred to ortho for follow up. Medical Decision Making - Lab Data Result diagrams: 06/07/18 12:15 06/07/18 12:15 Disposition Disposition: Discharge Clinical Impression: Leg pain, left Hall's cyst of knee Qualifiers: Laterality: left Qualified Code(s): M71.22 - Synovial cyst of popliteal space [ Hall], left knee Disposition: Home, Self-Care Condition: (1) Good Instructions: Bakers Cyst (ED) Additional Instructions: Call Dr Butler today to schedule a recheck in 2-3 days Minimize walking. Elevate the leg to minimize pain and swelling Use the compression hose to keep the swelling from returning. Return if fever, red, warm, numb, weak, cool, pale or any new concerns Call your orthopedic doctor for evaluation of a possible Hall's cyst. Referrals: [facility] [] - Forms: Patient Portal Access Time of Disposition: 13:51 Quality - Quality Measures Quality Measures: N/A - Blood Pressure Screening Does Patient Have Any of the Following: Active Dx of HTN Blood Pressure Classification: Pre-Hypertensive BP Reading Systolic Measurement: 141 Diastolic Measurement: 84 Screening for High Blood Pressure: Patient Exclusion, Hx of HTN [G9744]
[2018-06-07] MEDS ORDERED: HYDROCODONE/APAP 5/325MG TABLET PO ONE ×2 (12:10→14:19)
[2018-06-07 12:25] LABS: BASO % 0.3 % (0-6); EOS % 1.3 % (0-6); GRAN % 75.2 % (47-80); HEMATOCRIT 37.6 % (42.0-52.0); HEMOGLOBIN 11.7 gm/dl (14.0-18.0); MEAN CELL VOLUME 85.8 fl (81-97); MEAN CORPUSCULAR HEMOGLOBIN 26.7 pg (27-33); MEAN CORPUSCULAR HGB CONC 31.1 g/dl (32-36); MEAN PLATELET VOLUME 9.3 fl (7.4-10.4); MONO % 11.2 % (0-9); PLATELET COUNT 341 K/uL (130-400); RED BLOOD COUNT 4.38 M/uL (4.40-5.70); WHITE BLOOD COUNT W/O DIFF 6.3 K/uL (4.2-12.2)
[2018-06-07 12:37] LABS: BLOOD UREA NITROGEN 17 mg/dL (8-23); CREATININE 0.8 mg/dL (0.7-1.2); EST GLOMERULAR FILTRATION RATE > 60 mL/min
[2018-06-07 12:40] LABS: GLUCOSE,RANDOM 317 mg/dL (74-109)
[2018-06-07 12:42] LABS: C-REACTIVE PROTEIN 1.51 mg/dL (<0.5)
--- NOTE | 2018-06-08 05:49 | RADIOLOGY REPORT ---
EXAM: LEFT LOWER LEG HISTORY: LEFT LOWER LEG PAIN FOR TWO WEEKS. TECHNIQUE: Two views of the left tibia and fibula were obtained. Comparison: None. FINDINGS: External artifact superimposes the ankle. No acute fracture or focal osseous destruction is seen. Metallic surgical clips along the medial aspect of the knee. Scattered vascular calcifications. Limited visualization of the knee with suggestion of underlying arthrosis. Calcaneal Achilles and plantar enthesophytes. Small os trigonum. Suggestion of mild talonavicular arthrosis with small dorsal osteophytes. IMPRESSION: ABOVE. JOB NUMBER: [id number] [facility]
--- NOTE | 2018-06-08 06:25 | US ARTERIAL DOPPLER REPORT ---
EXAM: ARTERIAL DOPPLER OF THE BILATERAL LOWER EXTREMITIES HISTORY: CLAUDICATION, REST PAIN. TECHNIQUE: Routine bilateral lower extremity arterial Duplex ultrasound evaluation was performed. Comparison: None. FINDINGS: 3 Right Waveform Left Waveform Common Femoral Artery 75 cm/s Triphasic 92 cm/s Triphasic Profunda Femoral Artery 47 cm/s Biphasic 52 cm/s Triphasic Proximal Superficial Femoral Artery 129 cm/s Triphasic 101 cm/s Triphasic Mid Superficial Femoral Artery 94 cm/s Triphasic 76 cm/s Biphasic Distal Superficial Femoral Artery 85 cm/s Triphasic 108 cm/s Triphasic Popliteal Artery 73 cm/s Triphasic 87 cm/s Biphasic Anterior Tibial Artery 118 cm/s Monophasic 99 cm/s Monophasic Posterior Tibial Artery 85 cm/s Monophasic 85 cm/s Monophasic Peroneal Artery 73 cm/s Triphasic 62 cm/s Monophasic Dorsalis Pedis Artery 78 cm/s Monophasic 112 cm/s Monophasic Right GERSON is 1.2. Left GERSON is 1.1. There are scattered calcified and noncalcified arterial plaques throughout both lower extremities. In the medial left popliteal fossa an incompletely visualized 14 cm cystic structure is noted. IMPRESSION: 1. 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 2. INCOMPLETELY VISUALIZED CYSTIC STRUCTURE IN THE MEDIAL LEFT POPLITEAL FOSSA APPEARING TO CORRESPOND WITH THE REGION OF PATIENT'S SYMPTOMS. THE FINDING IS INCOMPLETELY SEEN, BUT MAY REPRESENT A BAKE'S CYST. J[facility]BER: [id number] [facility]
== END 2018-06-07 14:29 | disposition home or self-care (01) ==
LOC: ER 11:53
DX: M71.22 Synovial cyst of popliteal space [Baker], left knee (principal); M79.662 Pain in left lower leg; E11.9 Type 2 diabetes mellitus without complications; I25.2 Old myocardial infarction; I10 Essential (primary) hypertension; Z79.4 Long term (current) use of insulin; Z87.891 Personal history of nicotine dependence
CPT/HCPCS: 80048; 85025; 86140; 93925; 99283; 99284